=== PATIENT | female | born 1995 | race Caucasian/White ===

== ENCOUNTER 2023-08-17 21:32 | Day surgery (SDC) | payer OTHER ==
[2023-08-17] MEDS ORDERED: Acetaminophen 500 MG TAB ONE (22:10)
[2023-08-17 22:35] VITALS: BMI 28.6
[2023-08-17] MEDS ORDERED: hydrALAZINE 20 MG/ML VIAL SLOW IVP PRN (22:42)
[2023-08-18] MEDS: Labetalol HCl 200 MG TAB PO SCH (01:19)
== END 2023-08-18 01:40 | disposition home or self-care (01) ==
LOC: CSHERS 21:32 → CSHLD/OP 22:29
PROVIDERS: ATTEND Obstetrics & Gynecology
DX: O9A.212 Injury, poisoning and certain other consequences of external causes complicating pregnancy, second trimester (principal); R10.31 Right lower quadrant pain; O99.342 Other mental disorders complicating pregnancy, second trimester; F41.9 Anxiety disorder, unspecified; F32.A Depression, unspecified; O00.01 Abdominal pregnancy with intrauterine pregnancy; O99.412 Diseases of the circulatory system complicating pregnancy, second trimester; I47.10 Supraventricular tachycardia, unspecified; Z88.8 Allergy status to other drugs, medicaments and biological substances; Z88.2 Allergy status to sulfonamides; Z3A.23 23 weeks gestation of pregnancy; W19.XXXA Unspecified fall, initial encounter
CPT/HCPCS: 99282; 99283